=== PATIENT | male | born 1990 ===

== ENCOUNTER 2020-02-26 11:31 | Emergency (ER) | payer OTHER ==
[~2020-02-26] VITALS: Ht 182.9 cm; Wt 100.0 kg
[2020-02-26 11:36] VITALS: TEMP 97.7
[2020-02-26] MEDS ORDERED: NORCO 325 MG-51 TAB PO (12:06)
[2020-02-26 12:37] VITALS: BP 119/85; PULSE 59
== END 2020-02-26 12:37 | disposition home or self-care (01) ==
LOC: COL.ER 11:31
DX: S90.32XA Contusion of left foot, initial encounter (principal); Z88.6 Allergy status to analgesic agent; W20.8XXA Other cause of strike by thrown, projected or falling object, initial encounter